=== PATIENT | female | born 1990 | race Caucasian/White ===

== ENCOUNTER → 2016-11-17 | Outpatient (CLI) | payer BC | END | disposition home or self-care (01) | LOC: C.LABBFT 08:31 | PROVIDERS: ATTEND Obstetrics & Gynecology | DX: Z34.90 Encounter for supervision of normal pregnancy, unspecified, unspecified trimester (principal) ==

== ENCOUNTER → 2016-12-11 | Outpatient (CLI) | payer BC ==
[~2016-12-11] MED LIST: PRENTAB26 PO
[2016-12-11 16:31] LABS: BASO % 0.1 %; BASO ABS # 0.01 K/uL (0-0.2); COMPLETE YES; EOS % 0.5 %; HEMATOCRIT 38.9 % (37-47); IG% 0.2 %; LYMPH % 21.9 %; MEAN CELL VOLUME 94.2 fL (80-100); MEAN CORPUSCULAR HEMOGLOBIN 33.4 pg (25-34); MEAN CORPUSCULAR HGB CONC 35.5 g/dl (32-36); MEAN PLATELET VOLUME 10.7 fL (7.4-10.4); NEUT % 70.3 %; PLATELET COUNT 193 K/uL (130-400); RED BLOOD COUNT 4.13 M/uL (4.2-5.4); WHITE BLOOD COUNT 8.23 K/uL (4.8-10.8)
== END | disposition home or self-care (01) ==
LOC: C.LAB1850 15:25
PROVIDERS: ATTEND Obstetrics & Gynecology
DX: Z34.90 Encounter for supervision of normal pregnancy, unspecified, unspecified trimester (principal)

== ENCOUNTER → 2016-12-11 | Outpatient (CLI) | payer BC ==
[2016-12-11 18:17] LABS: URINE APPEARANCE CLEAR (CLEAR); URINE BILIRUBIN NEG (NEG); URINE COLOR YELLOW; URINE NITRITE NEG (NEG); URINE SPECIFIC GRAVITY 1.004 (1.000-1.030); UROBILINOGEN NEG (NEG)
[2016-12-11 18:24] LABS: MANUAL MICROSCOPIC REQUIRED? NO; REVIEW REQ? NO
[2016-12-15 23:54] LABS: CHLAMYDIA TRACH RNA*** NOT DETECTED (NOT DETECTED); GC (NEIS GONORRHOEAE)RNA** NOT DETECTED (NOT DETECTED)
== END | disposition home or self-care (01) ==
LOC: C.LABSPEC 17:41
PROVIDERS: ATTEND Obstetrics & Gynecology
DX: Z34.90 Encounter for supervision of normal pregnancy, unspecified, unspecified trimester (principal)

== ENCOUNTER → 2017-02-05 | Outpatient (CLI) | payer BC ==
[2017-02-05 18:24] LABS: GTGD 50 Grams
== END | disposition home or self-care (01) ==
LOC: C.LAB1850 15:15
PROVIDERS: ATTEND Obstetrics & Gynecology
DX: Z34.02 Encounter for supervision of normal first pregnancy, second trimester (principal)

== ENCOUNTER → 2017-04-29 | Outpatient (CLI) | payer BC ==
[2017-04-29 15:46] LABS: URINE APPEARANCE CLEAR (CLEAR); URINE BILIRUBIN NEG (NEG); URINE COLOR YELLOW; URINE EPITHELIAL CELL AUTO >30 /lpf (0-5); URINE NITRITE NEG (NEG); URINE SPECIFIC GRAVITY 1.017 (1.000-1.030); UROBILINOGEN NEG (NEG)
[2017-04-29 15:47] LABS: MANUAL MICROSCOPIC REQUIRED? NO; REVIEW REQ? NO
[2017-04-29 17:46] LABS: GTGD 50 Grams
== END | disposition home or self-care (01) ==
LOC: C.LAB1850 14:16
PROVIDERS: ATTEND Obstetrics & Gynecology
DX: Z34.03 Encounter for supervision of normal first pregnancy, third trimester (principal)

== ENCOUNTER → 2017-05-21 | Outpatient (CLI) | payer BC ==
[2017-05-21 13:01] LABS: CHOLESTEROL 225 mg/dl (0-200); HDL CHOLESTEROL 100 mg/dl; TRIGLYCERIDES 151 mg/dl (0-150)
== END | disposition home or self-care (01) ==
LOC: C.LABBFT 10:51
PROVIDERS: ATTEND Obstetrics & Gynecology
DX: Z34.03 Encounter for supervision of normal first pregnancy, third trimester (principal)

== ENCOUNTER 2017-07-25 00:48 | Inpatient (IN) | payer BC ==
[~2017-07-25] VITALS: Ht 157.5 cm; Wt 74.5 kg
[2017-07-25 01:36] VITALS: Ht 157.5 cm; Wt 74.5 kg
[2017-07-25] MEDS ORDERED: PRENTAB26 PO (01:36)
[2017-07-25] MEDS ORDERED: LACTATED RINGER'S 1000ML 1,000 ML IV PRN (01:42)
[2017-07-25] MEDS ORDERED: PENICILLIN G POTASSIUM IV 6 MU in DEXTROSE 5% 250ML 250 ML IV ONE (01:45)
[2017-07-25] MEDS: LACTATED RINGER'S 1000ML 1,000 ML IV SCH ×3 (02:11→13:14)
[2017-07-25 02:59] LABS: HEMATOCRIT 43.7 % (37-47); MEAN PLATELET VOLUME 12.1 fL (7.4-10.4); PLATELET COUNT 129 K/uL (130-400); RED BLOOD COUNT 4.37 M/uL (4.2-5.4); WHITE BLOOD COUNT 8.32 K/uL (4.8-10.8)
[2017-07-25 03:00] LABS: PLT ESTIMATE DECREASED
[2017-07-25] MEDS: PENICILLIN G POTASSIUM IV 3 MU in DEXTROSE 5% 100ML 100 ML IV PRN ×4 (06:05→17:45)
[2017-07-25] MEDS ORDERED: LACTATED RINGER'S 1000ML 500 ML IV PRN ×2 (06:48→08:20)
[2017-07-25] MEDS ORDERED: OXYTOCIN 30 UNITS/500ML NSS IV PRN ×2 (07:00→20:30)
[2017-07-25] MEDS ORDERED: FENTANYL 2MCG/ML ROPIV 1.25MG/ML 100ML BAG EPI ONE (07:15)
[2017-07-25] MEDS ORDERED: BUPIVACAINE 0.25% 30 ML VIAL ONE ×2 (07:15→17:11)
[2017-07-25] MEDS ORDERED: FENTANYL CITRATE INJ 50 MCG/1 ML 2 ML VIAL ONE ×2 (07:15→17:11)
[2017-07-25] MEDS ORDERED: EpHEDrine SULFATE INJ 50 MG/ML AMP ONE (07:15)
[2017-07-25] MEDS ORDERED: NALOXONE HCL INJ 1 MG in SODIUM CHLORIDE 0.9% 1000ML 1,000 ML IV PRN ×4 (08:20)
[2017-07-25] MEDS ORDERED: NALBUPHINE HCL INJ 10 MG/ML AMP IV PRN (08:30)
[2017-07-25] MEDS ORDERED: EpHEDrine SULFATE INJ 50 MG/ML AMP IV PRN (08:30)
[2017-07-25] MEDS ORDERED: NALOXONE HCL INJ 0.4 MG/1 ML VIAL/CARP IV PRN (08:30)
[2017-07-25] MEDS ORDERED: PROMETHAZINE HCL INJ 25 MG in SODIUM CHLORIDE 0.9% 50ML 50 ML IV PRN (08:30)
[2017-07-25] MEDS ORDERED: ONDANSETRON INJ 2 MG/ML 2 ML VIAL IV PRN (08:30)
[2017-07-25] MEDS ORDERED: DiphenhydrAMINE HCL 50 MG/ML VIAL IV PRN (08:30)
[2017-07-25] MEDS: FENTANYL 2MCG/ML ROPIV 1.25MG/ML 100ML BAG EPI PRN ×3 (16:11→19:02)
--- NOTE | 2017-07-25 17:23 | Anesthesiology Progress Note ---
Post OP Pain Management Date & Time of Service Jul 25, 2017 at 17:20 Subjective Therapies: Epidural/IV Drugs, Marcaine, Fentanyl pain is 7-8/10 Objective Cathether Site: examined, palpated, intact, dry, non-tender, without erythma, without exudate Assessment & Plan Pain Relief Assessment: will bolus epidural Plan: epidural catheter bolused w/12 ml 0.17% bupivacaine + 100 mcgs fentanyl + 0.9ss; vital signs are stable;negative aspiration and incremental injection at 1718
[2017-07-25] MEDS ORDERED: BENZOCAINE 20% AER SPR 82.5 GM CAN EXT PRN (20:30)
[2017-07-25] MEDS ORDERED: ACETAMINOPHEN 325 MG TAB PO PRN (20:30)
[2017-07-25] MEDS ORDERED: SUPERCREAM 0.870 % 15GM JAR EXT PRN (20:30)
[2017-07-25] MEDS ORDERED: ACETAMINOPHEN/CODEINE 300/30MG TAB PO PRN ×2 (20:30)
[2017-07-25] MEDS ORDERED: LANOLIN OINT EXT PRN ×2 (20:30)
--- NOTE | 2017-07-25 20:52 | DELIVERY SUMMARY ---
DATE OF OPERATION: 07/25/2017 The patient is a 27-year-old 1, para 0 white female who presents at 40-5/7 weeks with rupture of membranes and then spontaneous onset of labor. She received effective epidural analgesia. She was allowed to labor down as the presenting part was quite high and she had no urge to push. She began to push effectively, however, the heart tones then dropped to 90 beats per minute with slow recovery. She was pushing effectively and brought the vertex to the perineum. There was recovery of the heart rate to 120s in between the contractions but because of the persistence of the bradycardia which lasted for 2 minutes in between each contraction, a vacuum was applied on the vertex at +3 station and through one contraction, the vertex was delivered easily over the perineum. There was a tight nuchal cord which was clamped and cut. The rest of the infant delivered easily and placed on the mother's abdomen for further attention and stimulation. There was spontaneous crying and the infant was moving all four limbs. The placenta was expressed intact with a 3-vessel cord. A vaginal second-degree tear and second-degree perineal laceration were repaired with 2-0 chromic and 3-0 chromic in the usual fashion. Estimated blood loss was 400 mL. bleeding was controlled with dilute Pitocin and fundal massage. Mother and were doing well after delivery. I attest to the content of the Intraoperative Record and any orders documented therein. Any exceptions are noted below. MTDD
[2017-07-25] MEDS: IBUPROFEN 600 MG TAB PO PRN (21:41)
[2017-07-26] VITALS: BP 142/84; PULSE 62; TEMP 36.4; O2SAT 96
[2017-07-26 04:50] VITALS: BP 135/85; PULSE 63; TEMP 36.4; O2SAT 100
[2017-07-26] MEDS: IBUPROFEN 600 MG TAB PO PRN ×4 (04:56→23:07)
--- NOTE | 2017-07-26 06:55 | Anesthesia Procedure Note ---
Anesthesia Epidural Removal Nt Date & Time Jul 26, 2017 at 06:55 Vital Signs Pain Intensity: 2.0 Vital Signs Past 12 Hours Date Time Temp Pulse Resp B/P (MAP) Pulse Ox O2 Delivery O2 Flow Rate FiO2 07/26/17 04:50 36.4 63 16 135/85 (102) 100 Room Air 07/26/17 00:00 96 Room Air 07/26/17 00:00 36.4 62 18 142/84 (103) 96 Room Air Notes Mental Status: alert / awake / arousable, participated in evaluation Nausea / Vomiting: adequately controlled Pain: adequately controlled Airway Patency, RR, SpO2: stable & adequate BP & HR: stable & adequate Hydration State: stable & adequate Neuraxial Anesthesia: was administered, sensory block is resolved Anesthetic Complications: no major complications apparent, pt satisfied with anesthetic care Epidural: removed without complications, with tip intact
[2017-07-26 07:23] LABS: HEMATOCRIT 35.8 % (37-47)
--- NOTE | 2017-07-26 07:45 | Progress Note ---
Subjective Jul 26, 2017. Subjective conversation w/ patient Voiding: no voiding problems Passing Gas: Yes Diet Tolerance: Regular Diet Lochia: Moderate Feeding Type: Bottle Feeding Review of Systems Constitutional: No fever, No chills, No sweats, No weight loss, No weakness, No fatigue, No problem reported Objective Vital Signs Date Time Temp Pulse Resp B/P (MAP) Pulse Ox O2 Delivery O2 Flow Rate FiO2 07/26/17 04:50 36.4 63 16 135/85 (102) 100 Room Air 07/26/17 00:00 96 Room Air 07/26/17 00:00 36.4 62 18 142/84 (103) 96 Room Air Physical Exam General Appearance: WELL-APPEARING, NO APPARENT DISTRESS Abdomen: normal bowel sounds, soft Fundus: Firm, Non-Tender, Relation to Umbilicus (at U) Extremities: no calf tenderness Laboratory Results Last 24 Hours Test 07/26/17 06:32 Hemoglobin 12.1 g/dL Hematocrit 35.8 % Assessment and Plan Problem List Medical Problems: (1) Right ankle swelling Status: Acute Day#: 1 Continue Routine Care: stable course continue current care plan
--- NOTE | 2017-07-26 07:53 | Discharge Instructions ---
Discharge Instructions Date of Service Jul 26, 2017. Admission Reason for Admission: Encounter For Supervision Of Normal Intrauterine Discharge Discharge Diagnosis / Problem: recocvery from vaccuum assisted delivery Discharge Goals Goal(s): Routine recovery after delivery Medications Continue Dispensed Medications: supercream, dermaplast, tucks Activity Recommendations Activity Limitations: per Instructions/Follow-up section . Instructions / Follow-Up Instructions / Follow-Up ACTIVITY RECOMMENDATIONS: * Gradual return to full activity over the next 2-3 weeks. * No lifting - nothing heavier than baby over the next 2-3 weeks. * Do not engage in vigorous exercise, sexual activity or sports until cleared by your physician. * Do not drive or operate any motorized equipment until cleared by your physician. * You may shower/bathe daily. MEDICATIONS: For discomfort or pain, you may use Acetaminophen (Tylenol), Ibuprofen (Advil), or Naproxen (Aleve) following the package directions. For constipation you may use Colace following the package directions. BREAST CARE: If you are not breast feeding: * Wear a supportive bra 24 hours a day for one to two weeks. * Avoid stimulating your breasts and nipples as much as possible during the first few weeks after delivery. * When taking a shower, have the warm water hit your back, not breasts. * When your breasts feel full, apply ice packs. Usually three to four times a day helps ease the discomfort. * Take a mild pain medication (Tylenol / Motrin) when you are uncomfortable. If breast feeding: * Use breast milk to lubricate nipples. Lansinoh cream may be used for sore nipples. You do not need to remove cream prior to breast feeding. If using a different brand of cream, check the label for directions regarding removal of cream prior to nursing. * Wear a supportive bra. * If having problems with breasts or breast feeding, call a wardrobe image consultant or your health care provider. EPISIOTOMY CARE: After delivery, if you have an episiotomy (stitches), the following steps will ease discomfort and aid healing. * For the first 24 hours after delivery, place ice packs next to your episiotomy to help reduce swelling. * After the first 24 hour-period, sitz baths, either portable or in the tub, are suggested. A shower with a shower arm sprayed over the episiotomy may be comforting. * Karen care should be done after each voiding and bowel movement. Squirt warm water from a plastic bottle over the perineum (region of the body between the anus and urinary opening) and pat dry. * Use Dermoplast to ease discomfort. Shake container. Clarita directly over the episiotomy. Place a Tucks on a clean sanitary pad next to your episiotomy. SPECIAL CARE INSTRUCTIONS: When you are discharged from the hospital, it is important for you to follow the instructions listed below: * During the first week at home, you should be able to care for yourself and your baby. In addition, the usual light household activities are encouraged. * Limit your activities to the way you feel. Do not try to clean the house or move furniture. Be sensible. * If you actively engage in sports and have done so up until the time of your delivery, you may resume these activities as soon as you feel able. This may take up to one month or even longer. Use good judgment. * Continue to take your vitamins for at least six weeks after the of your baby. * Your diet need not be limited unless you were on a special diet before your delivery. Breast-feeding mothers need around 2500 calories per day and at least 64-80 ounces of fluid per day (8 to 10 glasses). * You should eat foods from the four major food groups. Crash diets or fad diets are to be avoided. Eating lean meats, fresh fruits and vegetables, low-fat dairy products, high fiber foods and a regular exercise program, will help you get back to your pre- weight without putting your health at risk. * Constipation is sometimes a problem after delivery. Take a mild laxative as needed. If breast feeding, Milk of Magnesia is acceptable to use. You may use a suppository or Fleets enema if no episiotomy. * A daily shower or tub bath is suggested. Be sure to thoroughly and gently dry the perineum. * A bloody vaginal discharge will usually continue until around four weeks post . A small amount of bleeding may continue for as long as six weeks. Vaginal discharge changes from the bright red bleeding after delivery to pink then brownish and finally yellowish-pink before becoming white and disappearing. * Bleeding may increase with activity. Your first period may come in 4-8 weeks. If you are breast feeding, your period may be delayed even longer. * [place] (sex) can begin whenever both you and your partner feel comfortable and do not have any form of genital infection. It is recommended that you wait at least six weeks for internal and external healing to occur. If you have questions, please talk to your health care practitioner. A condom should be used to prevent infection and . * Foreplay, gentle intercourse and lubrication is very important the first several times to prevent pain. A water-based lubricant such as K-Y jelly or Astroglide may be used. * If you have RH negative blood and your baby is RH positive, you will receive RHOGAM by injection prior to discharge. The nurse will give you a card to keep with you that has the date and place that you received RHOGAM after delivery. * During your care, you had a Rubella screen done to check for the presence of rubella antibodies in your blood. If your test was negative, you will receive a Rubella vaccine prior to discharge. This vaccine may cause a fever, soreness at the injection site and flu-like symptoms. If these symptoms persist, notify your health care practitioner. is not advised for one month after a Rubella vaccine. * Verbalizes understanding of car seat law as reviewed with patient nursing. * Car Seat hand-out given and reviewed with patient by nursing. * Shaken baby information reviewed with patient by nursing. Call you doctor if: * Heavy bleeding (saturating several pads an hour) or passing clots the size of your fist. * A fever >101 degrees F (38.3 degrees C) on two occasions four hours apart and /or chills. * Unusual pain in the pelvic or vaginal areas. * "Baby Blues" lasting longer than two weeks. If you have any questions or concerns, call your health care practitioner at . FOLLOW UP VISIT: * Please call the office at to schedule a 6 week examination. It is important you keep this appointment. It is important for you to make arrangements for either yearly or twice yearly check-ups thereafter. Current Hospital Diet Patient's current hospital diet: Regular OB Diet Discharge Diet Recommended Diet: Regular OB Diet Pending Studies Studies pending at discharge: no Laboratory Results Lipid Panel Test 05/21/17 11:02 Range/Units Cholesterol Level 225 H 0-200 mg/dl HDL Cholesterol 100 mg/dl Triglycerides Level 151 H 0-150 mg/dl Medical Emergencies . Who to Call and When: Medical Emergencies: If at any time you feel your situation is an emergency, please call 911 immediately. . Non-Emergent Contact Non-Emergency issues call your: Wait Staff . . "Provider Documentation" section prepared by Amrita Alcantara. . VTE Core Measure Inpt VTE Proph given/why not?: Treatment not indicated
[2017-07-26 08:05] VITALS: BP 136/86; PULSE 70; TEMP 36.4
[2017-07-26] MEDS: DOCUSATE SODIUM 100 MG CAP PO SCH ×2 (08:18→19:35)
[2017-07-26 12:10] VITALS: BP 114/77; PULSE 69; TEMP 36.5
[2017-07-26 16:30] VITALS: BP 124/87; PULSE 62; TEMP 36.5
[2017-07-26] MEDS ORDERED: BISACODYL 5 MG TABEC PO SCH (20:00)
[2017-07-26 23:15] VITALS: BP 127/85; PULSE 65; TEMP 36.7
[2017-07-27 07:07] VITALS: BP 119/82; PULSE 53; TEMP 36.6
--- NOTE | 2017-07-27 07:18 | Progress Note ---
Subjective Jul 27, 2017. Subjective conversation w/ patient, physical exam, chart review, lab review Ambulation: ambulating normally Voiding: no voiding problems Passing Gas: Yes Diet Tolerance: Regular Diet Lochia: Moderate Feeding Type: Bottle Feeding Pain: controlled Review of Systems Respiratory: No shortness of breath Cardiac: No chest pain Abdomen: No nausea, No vomiting Female : No dysuria Objective Vital Signs Date Time Temp Pulse Resp B/P (MAP) Pulse Ox O2 Delivery O2 Flow Rate FiO2 07/26/17 23:15 36.7 65 18 127/85 (99) Room Air 07/26/17 23:15 Room Air 07/26/17 16:30 36.5 62 18 124/87 (99) Room Air 07/26/17 16:30 Room Air 07/26/17 12:10 36.5 69 20 114/77 (89) 07/26/17 08:05 36.4 70 20 136/86 (103) Physical Exam General Appearance: WELL-APPEARING, WD/WN, NO APPARENT DISTRESS Respiratory/Chest: lungs clear, normal breath sounds, no respiratory distress Cardiovascular: regular rate, rhythm, no gallop Abdomen: normal bowel sounds, soft Fundus: Firm, Non-Tender, Relation to Umbilicus (at U) Extremities: normal inspection, no calf tenderness Assessment and Plan Day#: 2 Continue Routine Care: Resident Physician Supervision Note: I interviewed and examined the patient. Discussed with Dr. Buitrago and agree with findings and plan as documented in the note. Any exceptions or clarifications are listed here: [None] Documented By: Amrita Alcantara Vital signs reviewed and wnl. Hgb 15.3, 12.1. Stable. A +/ GBS -/ RI. Pt doing well clinically. Encourage ambulation, . Monitor lochia. Control pain with tylenol/ motrin Pt counselled on discharge instructions. STIVEN BUITRAGO FMR PGY 1. Resident Tracking Resident Involvement: Resident Care Provided Care Provided: OB Delivery
[2017-07-27] MEDS: DOCUSATE SODIUM 100 MG CAP PO SCH (07:30)
[2017-07-27] MEDS: IBUPROFEN 600 MG TAB PO PRN ×2 (07:30→15:50)
--- NOTE | 2017-07-27 08:17 | DISCHARGE SUMMARY ---
PRINCIPAL DIAGNOSIS: Intrauterine at 40+ weeks. PRINCIPAL PROCEDURE: Vacuum-assisted vaginal delivery. HISTORY: The patient is a 27-year-old 1, para 0 white female who presented at 40 and 5/7 weeks with ruptured membranes and spontaneous onset of labor. She progressed to full dilation. During this time period heart tones remained category 1. While pushing there were episodes of moderate variables in between her pushing episodes and after prolonged bradycardia to 90 beats per minute. The vacuum was applied on the perineum to assist in expediting the delivery. The patient had an uncomplicated course. She is bottle feeding and has been ambulating, voiding without difficulty. Bleeding has been moderate to small. Hemoglobin on admission was 15.3, hematocrit 43.7. Her first postop day hemoglobin 12.1, hematocrit 35.8. She is being sent home in good condition with the usual instructions. She will follow up in 6 weeks for her visit and will call for any other issues in the meantime.
[2017-07-27 08:23] VITALS: BP_DIAS 82; PULSE 53; TEMP 36.6
[2017-07-27 15:30] VITALS: BP 116/72; PULSE 79; TEMP 37
== END 2017-07-27 19:05 | disposition home or self-care (01) | DRG 775 ==
LOC: C.LD 00:48 → C.OPB 00:48 → C.LD 01:43 → C.OPB 01:47 → C.OBG 23:27
PROVIDERS: ADMIT Obstetrics & Gynecology; ATTEND Obstetrics & Gynecology
PROC: 10D07Z6 Extraction of Products of Conception, Vacuum, Via Natural or Artificial Opening (ICD-10-PCS; principal; 2017-07-25)
PROC: 0KQM0ZZ Repair Perineum Muscle, Open Approach (ICD-10-PCS; principal; 2017-07-25)
DX: O48.0 Post-term pregnancy (principal); Z3A.40 40 weeks gestation of pregnancy; Z37.0 Single live birth; O70.1 Second degree perineal laceration during delivery; O99.824 Streptococcus B carrier state complicating childbirth; O69.1XX0 Labor and delivery complicated by cord around neck, with compression, not applicable or unspecified; O76 Abnormality in fetal heart rate and rhythm complicating labor and delivery

== ENCOUNTER 2020-03-30 10:10 | Inpatient (IN) ==
--- NOTE | 2020-03-30 11:00 | History & Physical Report ---
Date of Service March 30, 2020 Assessment & Plan (1) Breech presentation: Kira is a 30 y/o female currently at 37-4/7 WGA with an SANDRA 04/16/20 as determined by ultrasound #1 who is here with , Daniel, for ECV in setting of breech positioning detected yesterday in the office. Her has otherwise been uncomplicated to-date. - Will proceed with ECV in setting of breech positioning found at term - Continue regular prepartum check-ups and office f/u Blood Type: O+ GBS: Positive Rubella: immune History of Present Illness Primary Care Provider: NATALIE Jett Kira is a 30 y/o female currently at 37-4/7 WGA with an SANDRA 04/16/20 as determined by ultrasound #1 who is here with , Daniel, for ECV in setting of breech positioning detected yesterday. Her has otherwise been uncomplicated. Previous uncomplicated. Endorses Webb-Knight contractions, which have not changed in frequency / regularity; endorses good movement; no fluid loss; no bloody show. External FHT and external uterine monitors used; Category I tracing; +FHT variability. Had regular appointments with OB. Labs: (10/10/19) Blood type: O+ Antibody screen: neg H.6 (01/24/20) Hct: 39.8 (01/24/20) WBC: 6.8 (01/24/20) Plt: 194 (01/24/20) Rubella: immune VDRL/RPR: neg Gonorrhea: neg Chlamydia: neg HIV: neg GBS: Positive HbSAg: neg Allergies Allergy/AdvReac Type Severity Reaction Status Date / Time acetaminophen AdvReac Intermediate DELIRIUM Verified 03/29/20 11:18 oxycodone AdvReac Intermediate DELIRIUM Verified 03/29/20 11:18 red dye AdvReac Unknown n/v Verified 03/29/20 11:18 Home Medications Home Medications Medication Instructions Recorded Confirmed Type prenat.vits,savnanah,ubx-[id number]-rqwmc 1 tab PO DAILY 09/07/19 03/30/20 History Patient History Medical History Hx of varicella PCOS (polycystic ovarian syndrome) Surgical History S/P dilatation and curettage 2016- D&E [place] teeth removed Family History Son Pyloric stenosis Grandfather (Maternal) Diabetes Grandfather (Paternal) Heart disease Social History Smoking Status: Never smoker Hx Alcohol Use: No Hx Substance Use: No Preferred Language: Lao Communication Ability: Effective [employer]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 Beliefs That Will Affect Care: None marital status: marital status details: Daniel Hernandez (30) [phone] Current Living Situation: Spouse Current Living Situation Comment: lives with spouse and child, 1 dog, 2 cats, not changing litter current occupational status: employed 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 No acute distress. Cardiac: Regular rate and rhythm, no murmurs/rubs/gallops. Respiratory: Clear to auscultation bilaterally a/p, no wheezes/rales/rhonchi. No increased work of breathing. Symmetrical chest rise. No respiratory distress. Lower Extremities: No lower extremity edema or swelling. No deep calf pain. Lance's negative bilaterally Results & Data Vital Signs (Past 12 Hours) Vital Signs Temp Pulse Resp BP 03/30/20 10:28 36.7 C 18 03/30/20 10:17 36.7 C 86 20 116/74 Resident Activity Tracking Resident Involvement: Resident Care Provided Care Provided: Adult Hospital Medicine
--- NOTE | 2020-03-30 11:42 | Procedure Note ---
Procedure Note Date of Service March 30, 2020 Note Patient presented to Labor and Delivery for planned external cephalic version. She underwent ultrasound previously in the office to determine adequate FRIEDA and look for nuchal cord. She was checked with ultrasound here on L&D and fetus c onfirmed to still be malpresented. In her case the fetus was anai breech with spine towards maternal left and head in maternal RUQ. Verbal consent was obtained after explaining the entire process, rationale for placement of IV, and the limit of 3 attempts with FHT check in between each. All questions were answered. The patient was reminded that chance of success is right around 50% and that this process is optional; she was assured that she has the ability to terminate the attempt at any time. She wishes to proceed. The belly was lubricated with ultrasound gel and ultrasound probe was used to identify the bladder. This was monitored while attempt was made to forwards-roll the fetus. This attempt lasted approximately 10 seconds and was not successful. The FHT were reassuring and the patient consented to second try. A backward- roll was attempted, for approximately 10 seconds, and was unsuccessful in achieving vertex position however this did change the position to transverse, head in LUQ and breech in RLQ, spine still to maternal left. The FHT were reassuring and the patient consented to a third try. With PGY1 elevating the pelvis and myself guiding the head downwards, another backward-roll attempt was made, however this too was unsuccessful. The fetus remained transverse, head in LUQ and breech in RLQ, at the conclusion of third try.The patient was advised that her fetus remained malpresented, and a section was arranged for 39wk gestational age. The fetus will be monitored for one hour before mom is discharged to home today for follow up in office. Coding
[2020-03-30] MEDS ORDERED: ACETAMINOPHEN 325 MG TAB PO PRN (13:11)
[2020-03-30] MEDS ORDERED: ACETAMINOPHEN 500 MG TAB ONE (13:22)
[2020-03-30] MEDS ORDERED: ACETAMINOPHEN 500 MG TAB PO PRN (13:33)
[2020-03-30] MEDS ORDERED: CITRIC ACID/SODIUM CITRATE 15 ML UDC ONE (14:28)
[2020-03-30] MEDS ORDERED: MoRPHine SULFATE PF 1 MG/ML 10 ML AMP/VIAL ONE (14:35)
[2020-03-30] MEDS ORDERED: fentaNYL citrate 100 MCG/2 ML VIAL ONE (14:35)
[2020-03-30] MEDS ORDERED: OXYTOCIN 10 UNITS/ML VIAL ONE ×4 (14:36→15:44)
--- NOTE | 2020-03-30 14:38 | Obstetrical Progress Note ---
Date of Service March 30, 2020 Subjective 30yo at 37.4 weeks GA. Presented to bedside for recurrent decels and intense contractions. Prolonged decel to 70s for 3 minutes. Resuscitation performed with FHR return to 120s. Cervical exam performed with progression to 2/60/-2 from closed long and high about 1hr prior. Recommended proceeding with for recurrent decels, including prolonged decels, and early labor. Patient agreed and consents reviewed and signed. See op report for further details Results & Data ([facility]) Vital Signs (Past 12 Hours) Vital Signs Temp Pulse Resp BP 03/30/20 14:01 85 120/87 03/30/20 10:28 36.7 C 18 03/30/20 10:17 36.7 C 86 20 116/74 PG Care Time/CCT Total # of Minutes Spent Total Time Spent with Patient: Total time spent is greater than 50% in coordination of care (as documented) at patient's floor/unit and/or counseling patient: Coding Level of Care Code None
[2020-03-30] MEDS ORDERED: PROMETHAZINE HCL 25 MG in SODIUM CHLORIDE 0.9% 50 ML IV PRN (14:42)
[2020-03-30] MEDS ORDERED: NALOXONE HCL 0.08 MG in SYRINGE 1.8 ML IV PRN (14:42)
[2020-03-30] MEDS ORDERED: MoRPHine SULFATE PF 1 MG/ML 10 ML AMP/VIAL INT SPINAL ONE (14:42)
[2020-03-30] MEDS ORDERED: DiphenhydrAMINE HCL 50 MG/ML VIAL IV PRN (14:42)
[2020-03-30] MEDS ORDERED: LACTATED RINGER'S 500 ML IV PRN (14:42)
[2020-03-30] MEDS ORDERED: NALOXONE HCL 0.4 MG/1 ML VIAL/CARP IV PRN (14:42)
[2020-03-30] MEDS ORDERED: ONDANSETRON INJ 2 MG/ML 2 ML VIAL IV PRN (14:42)
[2020-03-30] MEDS ORDERED: ePHEDrine sulfate 50 MG/ML AMP IV PRN (14:42)
[2020-03-30] MEDS ORDERED: NALOXONE HCL 1 MG in SODIUM CHLORIDE 0.9% 1000ML 1,000 ML IV PRN (14:42)
--- NOTE | 2020-03-30 14:44 | Anesthesiology Consultation ---
Date of Service March 30, 2020 Assessment & Plan ASA ASA2E Proposed Anesthesia Anesthesia Type: Spinal Risk / Benefits Reviewed With: PT / POA / Parent / Guardian, Accepts Plan and Informed Consent Obtained History Surgery Operation Date: 03/30/20 02:25 Proposed Procedures p Section in LD - Eliseo Broewr MD Height/Weight Height: 5 ft 1 in Weight: 73.028 kg Allergies Allergy/AdvReac Type Severity Reaction Status Date / Time acetaminophen AdvReac Intermediate DELIRIUM Verified 03/29/20 11:18 oxycodone AdvReac Intermediate DELIRIUM Verified 03/29/20 11:18 red dye AdvReac Unknown n/v Verified 03/29/20 11:18 Medications Home Medications Medication Instructions Recorded Confirmed Last Taken prenat.vits,savannah,blq-fuqp-bfjyv 1 tab PO DAILY 09/07/19 03/30/20 03/29/20 21:20 Active Medications Generic Name Dose Route Start Last Admin Trade Name Freq PRN Reason Stop Dose Admin Acetaminophen 1,000 mg 03/30/20 13:33 03/30/20 13:30 Tylenol PO 04/29/20 13:32 1,000 mg Q6H PRN Administration Pain Cefazolin Sodium 2,000 mg in 15 mls @ 3.75 mls/min 03/30/20 15:00 03/30/20 14:46 Ancef 2000mg IV 03/30/20 23:59 3.75 mls/min TODAY@1500 BIENVENIDO Administration NPO Date Last Intake of Fluids: 03/30/20 Time Last Intake of Fluids: 00:00 Date Last Intake of Solids: 03/30/20 Time Last Intake of Solids: 00:00 Past Medical History Medical History Hx of varicella PCOS (polycystic ovarian syndrome) Exercise / Class Metabolic Activity II 4-5 Yardwork/Stairs/Walk up hill Past Family History Family History Son Pyloric stenosis Grandfather (Maternal) Diabetes Grandfather (Paternal) Heart disease Past Surgical History Surgical History S/P dilatation and curettage 2016- D&E [place] teeth removed Past Anesthesia History No Hx of Anesthesia Complications and No Family Hx of Anesthesia Complications History of PONV No Hx of PONV and No Hx of Motion Sickness Social History Smoking Status: Never smoker Hx Alcohol Use: No Hx Substance Use: No Review of Systems denies fever/cough/ colds/ chest pain/ SOB/ JANET Constitutional: no fever and no chills Respiratory: no cough and no dyspnea denies JANET Cardiovascular: no chest pain and no dyspnea on exertion Physical Exam Vital Signs Last Vital Signs Temp 36.4 C L 03/30/20 14:39 Pulse 82 03/30/20 14:39 Resp 18 03/30/20 14:39 BP 120/87 03/30/20 14:01 Pulse Ox 100 03/30/20 14:39 ENMT Mouth: no TMJ abnormality and no dentition abnormality Thyromental Distance: > or= 3.5 Finger Breadths Mallampati Class: II Neck neck extension not limited Respiratory normal respiratory effort; no respiratory distress Auscultation: lungs clear to auscultation bilaterally Cardiovascular Rate/Rhythm: regular rate and regular rhythm Neurologic moves all extremities Psychiatric Orientation: alert and oriented x 3
[2020-03-30] MEDS ORDERED: NO NARCOTICS OR SEDATIVES SCH (14:45)
[2020-03-30] MEDS ORDERED: SODIUM CHLORIDE 0.9% 1000ML 1,000 ML IV SCH (14:45)
[2020-03-30] MEDS ORDERED: CEFAZOLIN 2000MG 2,000 MG/15 ML SYR IV SCH (15:00)
[2020-03-30 15:04] LABS: Eosinophils # (auto) 0.02 K/uL (0-0.5); Eosinophils % (auto) 0.2 %; Hematocrit (blood only) 45.1 % (37-47); Hemoglobin 15.6 g/dL (12.0-16.0); Immature Granulocytes # (auto) 0.02 K/uL (0.00-0.02); Immature Granulocytes % (auto) 0.2 %; Lymphocytes # (auto) 1.38 K/uL (1.2-3.4); Lymphocytes % (auto) 15.4 %; Mean Corpuscular Hemoglobin 34.3 pg (25-34); Mean Corpuscular Volume 99.1 fL (80-100); Mean Platelet Volume 10.9 fL (7.4-10.4); Monocytes % (auto) 5.6 %; Neutrophils # (auto) 7.07 K/uL (1.4-6.5); Neutrophils % (auto) 78.6 %; Platelet Count 129 K/uL (130-400); RDW Coefficient of Variation 13.5 % (11.5-14.5); RDW Standard Deviation 47.9 fL (36.4-46.3); Red Blood Count 4.55 M/uL (4.2-5.4); White Blood Count 8.99 K/uL (4.8-10.8)
[2020-03-30 15:06] LABS: Mean Corpuscular Hgb Conc 34.6 g/dL (32-36)
[2020-03-30] MEDS ORDERED: ePHEDrine sulfate 50 MG/ML SYR ONE (15:31)
[2020-03-30] MEDS ORDERED: ONDANSETRON INJ 2 MG/ML 2 ML VIAL ONE (15:31)
[2020-03-30] MEDS ORDERED: METHYLERGONOVINE MALEATE 0.2 MG/ML AMP ONE (15:43)
[2020-03-30] MEDS ORDERED: KETOROLAC 30 MG/ML VIAL ONE (15:52)
--- NOTE | 2020-03-30 16:29 | Anesthesiology Progress Note ---
Date of Service March 30, 2020 Anesthesia Post Procedure Vital Signs Vital Signs: Temp Pulse Resp BP Pulse Ox 03/30/20 16:27 60 87 L 03/30/20 16:24 70 91 03/30/20 16:22 64 100 03/30/20 16:18 60 91 03/30/20 16:17 59 L 100 03/30/20 16:13 70 126/60 03/30/20 16:12 59 L 100 03/30/20 14:54 87 03/30/20 14:49 77 03/30/20 14:44 70 03/30/20 14:39 36.4 C L 82 18 100 03/30/20 14:34 69 100 03/30/20 14:01 85 120/87 03/30/20 10:28 36.7 C 18 03/30/20 10:17 36.7 C 86 20 116/74 Transfer of Care Handoff Completed per policy Notes Mental Status: alert / awake / arousable and participated in evaluation Patient Amnestic to Procedure: Yes Nausea / Vomiting: adequately controlled Pain: adequately controlled Airway Patency, RR, SpO2: stable & adequate BP & HR: stable & adequate Hydration State: stable & adequate Anesthetic Complications: no major complications apparent and Pt Satisfied with anesthetic care
[2020-03-30] MEDS ORDERED: LACTATED RINGER'S 1,000 ML IV SCH (16:30)
[2020-03-30] MEDS ORDERED: HYDROCORTISONE ACETATE 25 MG SUPP PR PRN (16:30)
[2020-03-30] MEDS ORDERED: MAGNESIUM HYDROXIDE SUSP 30 ML UDC PO PRN (16:30)
[2020-03-30] MEDS ORDERED: BENZOCAINE 20% AER SPR 82.5 GM CAN EXT PRN (16:30)
[2020-03-30] MEDS ORDERED: SUPERCREAM 0.870% 15 GM JAR EXT PRN (16:30)
[2020-03-30] MEDS ORDERED: DIPHTHERIA/TETANUS/PERTUSSIS 0.5 ML SYR/VIAL IM ONE (16:30)
[2020-03-30] MEDS ORDERED: SENNA 8.6 MG TAB PO PRN (16:30)
--- NOTE | 2020-03-30 16:34 | Operative Report (OR) ---
DATE OF OPERATION: 03/30/2020 PROCEDURE: Primary low transverse section. SURGEON: Eliseo Brower MD. ASSISTANTS: Yancy Gaines MD and Dr. Chay Driscoll, PGY-1. PREOPERATIVE DIAGNOSES: 1. Single intrauterine at 37 weeks 4 days gestational age. 2. Suspected abruption. 3. Early labor. 4. Nonreassuring heart tones. 5. Breech. POSTOPERATIVE DIAGNOSES: 1. Single intrauterine at 37 weeks 4 days gestational age. 2. Suspected abruption. 3. Early labor. 4. Nonreassuring heart tones. 5. Breech. 6. Status post procedure. ESTIMATED BLOOD LOSS: 600 mL. DRAINS: Linton catheter. FLUIDS: Continuous lactated Ringer. URINE OUTPUT: Per Linton catheter. COMPLICATIONS: None. FINDINGS: Viable male infant with weight and Apgars pending. INDICATIONS: Kira is a 30-year-old G3, P1-0-1-1, at 37 weeks 4 days gestational age. The patient presented on the morning of this procedure for external cephalic version secondary to breech presentation. Following the procedure which was unsuccessful, the patient was noted to have regular painful contractions. heart rate tracing noted recurrent decelerations. The patient was initially kept for observation, and the regular contractions and abdominal tenderness and painful contractions continued. The patient was initially checked and she was noted to have closed cervix, 30% effaced. The patient was rechecked approximately 1 hour to an hour and a half after initial check, was found to be 2, 60, negative 2. The patient had a prolonged decel down to the 70s for over 3 minutes, and at this time in light of the cervical change and recurrent decelerations including prolonged decelerations, decision was made to proceed with a primary low transverse section for the above-noted indications. DESCRIPTION OF PROCEDURE: The patient was taken to the operating room after consents were ensured. Upon presentation, she was properly identified. Spinal anesthesia was obtained without difficulty. The patient was then prepped and draped in normal sterile fashion. Preprocedural timeout was performed. A Pfannenstiel incision was then made with a knife. This was carried down to underlying fascia with the Bovie. The fascia was then nicked at the midline with the knife. The fascial incision was extended laterally in each direction with pickcesar and Olivas scissors. The superior aspect of the fascia was then grasped with Kochers x2 and elevated off the underlying rectus muscle using blunt dissection. The inferior aspect of the fascia was then grasped with Kochers x2 and elevated off the underlying rectus muscles using blunt dissection. Midline was then entered bluntly and placed on stretch to provide adequate room for delivery. A bladder blade was inserted. A bladder flap was created in the normal fashion. A low transverse incision was then made with the knife. This was extended to allow room for delivery. The fetus was noted to be in anai breech presentation and was delivered through the hysterotomy without difficulty. The legs were internally rotated to achieve delivery. The delivery continued to the level of the axillae and the bilateral arms were internally rotated to achieve delivery. Head of the was then delivered without difficulty and was noted to be vigorous upon delivery. Cord was doubly clamped and cut. was delivered to the waiting nursery staff. Cord blood was then obtained. Attention was then turned to delivery of the placenta, which was delivered intact, 3-vessel cord, gentle cord traction. The uterus was then exteriorized, wrapped in a wet lap. Several passes were made to remove any remaining membranes with a dry lap. The hysterotomy was then reapproximated with 0 Vicryl continuous running locked suture. A second imbricating layer using 0 Vicryl in continuous running stitch was then performed. A couple of areas of bleeding were noted to be persistent and several [id number] stitches were used to achieve hemostasis. The posterior cul-de-sac was cleaned of clots and debris and irrigated. The uterus was returned to the maternal abdomen, and the right and left pericolic gutters were cleaned of clots and debris. Hysterotomy was reinspected and noted to be hemostatic. The subcutaneous fascial and muscle layers were inspected and noted to be hemostatic. The fascia was then reapproximated with 0 Vicryl continuous running stitch, subcutaneous layers were reapproximated with 2-0 plain. The skin layers were reapproximated with 3-0 subcuticular stitch. Dermabond was placed on top. Needle, sponge and instrument counts were correct at the completion of the case. Both mother and were stable in the immediate post-delivery period. I attest to the content of the Intraoperative Record and any orders documented therein. Any exception s are noted below.
[2020-03-30] MEDS ORDERED: OXYTOCIN 30 UNITS in LACTATED RINGER'S 1,000 ML IV SCH (16:45)
[2020-03-30] MEDS: MoRPHine SULFATE 2 MG/ML CARP IV PRN ×2 (17:04→21:47)
[2020-03-30] MEDS: SIMETHICONE 80 MG CHEW PO SCH ×2 (18:11→21:14)
[2020-03-30] MEDS: KETOROLAC 30 MG/ML VIAL IV PRN (19:00)
[2020-03-31] MEDS: KETOROLAC 30 MG/ML VIAL IV PRN ×2 (00:58→08:21)
[2020-03-31] MEDS: MoRPHine SULFATE 2 MG/ML CARP IV PRN (05:06)
--- NOTE | 2020-03-31 05:23 | Obstetrical Progress Note ---
Date of Service <Chay Noonan MD - Last Filed: 03/31/20 06:26> March 31, 2020 Assessment & Plan <Chay Noonan MD - Last Filed: 03/31/20 06:26> (1) S/P : Kira is a 30 y/o female who is POD #1 following delivery at 37-4/7 weeks in setting of NRFHT following attempted ECV - Feels well overall this AM - Pain well controlled with ibuprofen 600mg Q4H PRN. - Routine post-op care -- anticipate younger removal today, encourage OOB, ambulation, and diet progression as tolerated Day #:: 1 Subjective <Chay Noonan MD - Last Filed: 03/31/20 06:26> Kira is a 30 y/o female who is POD #1 following delivery at 37-4/7 weeks in setting of NRFHT following attempted ECV. She reports feeling well overall this morning. Moderate abdominal cramping with pain well managed on analgesics. Younger in place draining clear urine. Not yet passing gas and no bowel movements yet. Currently bottle feeding without difficulty Review of Systems Denies fever, chills, sweats Denies shortness of breath, difficulty breathing, chest pain, palpitations, chest pressure. Denies breast pain. Denies dysuria. Denies headache or changes in vision. Physical Exam <Chay Noonan MD - Last Filed: 03/31/20 06:26> General: Alert, oriented. No acute distress. Cardiac: Regular rate and rhythm, no murmurs/rubs/gallops. Respiratory: Clear to auscultation bilaterally a/p, no wheezes/rales/rhonchi. No increased work of breathing. Symmetrical chest rise. No respiratory distress. Abdomen: Soft, nontender, nondistended. Bowel sounds present. Uterus: Uterine fundus firm, palpable at level of umbilicus. Surgical scar clean and healing well. Lower Extremities: No lower extremity edema or swelling. No deep calf pain. Lance's negative bilaterally. Results & Data <Chay Noonan MD - Last Filed: 03/31/20 06:26> Vital Signs (Past 12 Hours) Vital Signs Temp Pulse Pulse Resp BP BP Pulse Ox 03/31/20 03:00 16 98 03/31/20 02:00 15 97 03/31/20 01:30 36.7 C 62 17 118/76 99 03/31/20 01:00 16 99 03/31/20 00:00 15 98 03/30/20 23:00 18 98 03/30/20 22:00 18 98 03/30/20 21:00 18 97 03/30/20 20:00 16 98 03/30/20 19:00 36.5 C 59 L 16 115/74 97 03/30/20 18:47 71 98 03/30/20 18:42 58 L 117/64 99 03/30/20 18:37 58 L 99 03/30/20 18:33 80 121/62 03/30/20 18:32 69 99 03/30/20 18:28 85 92 03/30/20 18:27 82 97 03/30/20 18:22 56 L 107/63 99 03/30/20 18:17 59 L 83 L 03/30/20 18:12 36.5 C 59 L 17 116/60 99 03/30/20 18:07 53 L 100 03/30/20 18:03 53 L 117/58 L 03/30/20 18:02 61 100 03/30/20 17:57 55 L 100 03/30/20 17:52 60 95/62 L 99 03/30/20 17:49 54 L 92 03/30/20 17:47 56 L 100 03/30/20 17:43 54 L 98/50 L 03/30/20 17:42 56 L 15 98/50 L 100 03/30/20 17:37 54 L 100 03/30/20 17:32 55 L 100 03/30/20 17:30 36.5 C 03/30/20 17:27 56 L 100 03/30/20 17:23 52 L 102/55 L 03/30/20 17:22 54 L 100 <Yancy Gaines MD - Last Filed: 03/31/20 07:50> Co-Signing Physician Notes I have reviewed the resident's note and examined the patient myself, and agree with the note above. Resident Activity Tracking <Chay Noonan MD - Last Filed: 03/31/20 06:26> Resident Involvement: Resident Care Provided Care Provided: Adult [facility] Medicine and OB Delivery
[2020-03-31] MEDS ORDERED: CITRIC ACID/SODIUM CITRATE 15 ML UDC PO SCH (06:00)
[2020-03-31 06:47] LABS: Eosinophils # (auto) 0.04 K/uL (0-0.5); Eosinophils % (auto) 0.5 %; Hematocrit (blood only) 40.3 % (37-47); Hemoglobin 13.7 g/dL (12.0-16.0); Immature Granulocytes # (auto) 0.03 K/uL (0.00-0.02); Immature Granulocytes % (auto) 0.4 %; Lymphocytes # (auto) 0.96 K/uL (1.2-3.4); Lymphocytes % (auto) 11.6 %; Mean Corpuscular Hemoglobin 34.1 pg (25-34); Mean Corpuscular Volume 100.2 fL (80-100); Mean Platelet Volume 11.1 fL (7.4-10.4); Monocytes # (auto) 0.54 K/uL (0.11-0.59); Monocytes % (auto) 6.5 %; Neutrophils # (auto) 6.74 K/uL (1.4-6.5); Platelet Count 112 K/uL (130-400); RDW Coefficient of Variation 13.5 % (11.5-14.5); RDW Standard Deviation 49.2 fL (36.4-46.3); Red Blood Count 4.02 M/uL (4.2-5.4); White Blood Count 8.31 K/uL (4.8-10.8)
[2020-03-31] MEDS: FERROUS SULFATE 325 MG TAB PO SCH (08:20)
[2020-03-31] MEDS: SIMETHICONE 80 MG CHEW PO SCH ×4 (08:20→20:52)
[2020-03-31] MEDS: PRENATAL VITAMIN 1 TAB PO SCH (08:20)
[2020-03-31] MEDS ORDERED: DC INTRASPINAL MORPHINE ONE (08:42)
[2020-03-31] MEDS ORDERED: DiphenhydrAMINE HCL 50 MG/ML VIAL IV PRN (08:42)
[2020-03-31] MEDS ORDERED: ONDANSETRON INJ 2 MG/ML 2 ML VIAL IV PRN (08:42)
[2020-03-31] MEDS ORDERED: MEPERIDINE HCL 50 MG/ML CARP IV PRN (08:42)
[2020-03-31] MEDS ORDERED: KETOROLAC 30 MG/ML VIAL IV PRN (08:42)
[2020-03-31] MEDS ORDERED: OXYCODONE/ACETAMINOPHEN 5mg/325mg TAB PO PRN (08:42)
[2020-03-31] MEDS ORDERED: PROMETHAZINE HCL 25 MG in SODIUM CHLORIDE 0.9% 50 ML IV PRN (08:42)
[2020-03-31] MEDS: IBUPROFEN 600 MG TAB PO PRN ×2 (12:34→16:46)
[2020-03-31] MEDS: HYDROmorphone HCL 2 MG TAB PO PRN ×2 (12:34→16:45)
[2020-03-31] MEDS ORDERED: ACETAMINOPHEN 500 MG TAB PO PRN (17:49)
[2020-03-31] MEDS: HYDROCODONE/ACETAMINOPHEN 10/325 TAB PO PRN ×2 (19:03→23:01)
[2020-03-31] MEDS: DOCUSATE SODIUM 100 MG CAP PO SCH (20:52)
[2020-04-01] MEDS: HYDROCODONE/ACETAMINOPHEN 10/325 TAB PO PRN ×2 (06:15→12:17)
[2020-04-01 06:40] LABS: Hematocrit (blood only) 37.8 % (37-47); Hemoglobin 12.9 g/dL (12.0-16.0)
[2020-04-01] MEDS: DOCUSATE SODIUM 100 MG CAP PO SCH (08:35)
[2020-04-01] MEDS: FERROUS SULFATE 325 MG TAB PO SCH (08:35)
[2020-04-01] MEDS: IBUPROFEN 600 MG TAB PO PRN (08:35)
[2020-04-01] MEDS: PRENATAL VITAMIN 1 TAB PO SCH (08:35)
[2020-04-01] MEDS: SIMETHICONE 80 MG CHEW PO SCH ×2 (08:35→12:17)
--- NOTE | 2020-04-01 10:25 | Post Operative Brief Note ---
PG Immediate Post Op with CF Date of Surgery March 30, 2020 Pre & Post Diagnosis Operation Date: 03/30/20 15:00 Pre-Op Diagnosis: Early labor; Non-reassuring FHR following version attempt; Breech I identified the patient and participated in the time-out.: Yes Procedure Operation Date: 03/30/20 15:00 <No data on this case meets the specified criteria> Surgeon Eliseo Brower MD Packaging Manager Dr. Gaines Estimated Blood Loss 600 Findings Consistent with Post-Op Diagnosis Drains Linton Catheter (inserted after spinal by Madai Bernard RN for return of clear yellow urine)
--- NOTE | 2020-04-01 10:27 | Obstetrical Progress Note ---
Date of Service April 01, 2020 Assessment & Plan (1) S/P : Doing well. S/p Day 2 s/p . Routine care. Stable for discharge Subjective Ambulation: ambulating normally Voiding: no voiding problems Passing Gas:: Yes Diet Tolerance:: regular diet Lochia:: Moderate Feeding Type:: breast feeding Physical Exam Constitutional WD/WN, vitals as above Respiratory normal respiratory effort; no respiratory distress and no labored breathing Gastrointestinal (Abdomen) Inspection/Auscultation: abdomen normal to inspection; abdomen not distended Percussion/Palpation: abdomen soft; abdomen nontender, no guarding and abdomen not rigid Incision intact Genitourinary OB Exam Abdomen: + fundal height Fundus: + firm and + relation to umbilicus (Below); not tender and not boggy Results & Data ([facility]) Vital Signs (Past 12 Hours) Vital Signs Temp Pulse Resp BP Pulse Ox 04/01/20 07:40 36.6 C 88 16 108/69 94 03/31/20 23:05 36.4 C L 50 L 20 104/66 98
--- NOTE | 2020-04-06 01:25 | Discharge Summary (DS) ---
PROCEDURE WHILE ADMITTED: Primary low transverse section. HOSPITAL COURSE: The patient was presented for an external cephalic version for breech presentation on morning of , the version was unsuccessful and following the version, the patient was noted to have recurrent painful contractions and heart rate decelerations. The patient was kept on labor and delivery for extended monitoring and evaluation. During that time, she was noted to have recurrent decelerations, some of which were prolonged, lasting 3-4 minutes, heart rate down to the 70s and 80s. The patient's cervix was reevaluated and noted to progressed from closed to 2 cm dilated. At that time, due to the nonreassuring heart rate as well as the progression of labor progression, we discussed delivery via section, which the patient was agreeable to, the procedure was then performed without complication. The patient remained in house until day #2 and did well without any further issues or concerns and was discharged home in stable condition. The patient was discharged home with both written and verbal discharge instructions with a planned follow up at 6 weeks.
== END 2020-04-01 12:50 | disposition home or self-care (01) | DRG 788 ==
LOC: 4S1 10:10 → OPB 10:10 → 4S1 14:30 → 4S2 19:13